=== PATIENT | female | born 1940 | race Caucasian/White ===

== ENCOUNTER 2022-05-12 08:46 | Inpatient (IN) ==
[2022-05-12] MEDS ORDERED: ONDANSETRON 4 MG/2 ML VIAL IV STA (09:11)
[2022-05-12] MEDS ORDERED: SODIUM CHLORIDE 0.9% 1,000 ML IV STA (09:11)
[2022-05-12] MEDS ORDERED: PANTOPRAZOLE 40 MG VIAL IV STA (09:11)
[2022-05-12 09:29] LABS: Basophils # 0.1 10*3/uL (0.0-0.2); Basophils % 0.8 % (0.0-0.8); Eosinophils % 0.5 % (0.00-10.9); Hematocrit 39.1 VOL% (35.7-47.0); Hemoglobin 13.2 GM/DL (12.0-16.0); Immature Granulocytes % 0.3 %; Immature Granulocytes Absolute 0.02 #; Lymphocytes # 1.4 10*3/uL (1.4-4.0); Lymphocytes % 23.3 % (21.3-54.2); Mean Corpuscular HGB Conc 33.8 GM/DL (32-36); Mean Corpuscular Volume 96.1 FL (87-102); Mean Platelet Volume 9.5 FL (9.6-12.0); Monocytes # 0.6 10*3/uL (0.11-0.8); Monocytes % 10.8 % (1.7-12.7); Neutrophils % 64.3 % (38.7-73.9); Platelet Count 301 T/CUMM (130-400); Red Blood Count 4.07 MC/CUMM (3.8-5.5); White Blood Count 5.9 T/CUMM (4-12)
[2022-05-12 09:39] LABS: PT Patient Result 10.7 SECS (10.1-12.1); Partial Thromboplastin Time 29.8 SECS (23.7-32.9)
[2022-05-12 09:51] LABS: Albumin 3.9 G/DL (3.4-5.0); Bilirubin,Total 0.4 MG/DL (0.20-1.00); Calcium 9.3 MG/DL (8.5-10.1); Osmolality,Calculated 268.1 MOS/KG (273-304); Potassium 3.9 MMOL/L (3.5-5.1)
[2022-05-12] MEDS ORDERED: ONDANSETRON 4 MG/2 ML VIAL IV PRN (11:06)
[2022-05-12] MEDS ORDERED: ACETAMINOPHEN 325 MG TABLET PO PRN (11:06)
[2022-05-12] MEDS: SODIUM CHLORIDE 0.9% 1,000 ML IV SCH ×2 (11:51→20:00)
[2022-05-12] MEDS ORDERED: fentaNYL 100 MCG/2 ML VIAL ONE (13:50)
[2022-05-12] MEDS ORDERED: VECURONIUM 10 MG VIAL IV ONE (13:50)
[2022-05-12] MEDS: CHOLECALCIFEROL 1,000 UNIT TABLET PO SCH (21:08)
[2022-05-12] MEDS: FLECAINIDE 50 MG TABLET PO SCH (21:08)
[2022-05-12] MEDS: DOCUSATE SODIUM 100 MG CAPSULE PO SCH (21:09)
[2022-05-13] MEDS ORDERED: hydrALAZINE 20 MG/1 ML VIAL IV PRN (01:25)
[2022-05-13] MEDS: SODIUM CHLORIDE 0.9% 1,000 ML IV SCH (03:19)
[2022-05-13] MEDS ORDERED: PROMETHAZINE 25 MG/1 ML VIAL IM ONE (07:30)
[2022-05-13] MEDS ORDERED: MEPERIDINE 50 MG/1 ML VIAL IM ONE (07:30)
[2022-05-13] MEDS ORDERED: MIDAZOLAM 2 MG/2 ML VIAL IV ONE (08:00)
[2022-05-13] MEDS ORDERED: LIDOCAINE 1% 20 ML VIAL MISC INJ ONE (08:00)
[2022-05-13] MEDS ORDERED: LIDOCAINE 2% 20 ML VIAL RESP TX ONE (08:00)
[2022-05-13] MEDS ORDERED: LIDOCAINE 2% VISCOUS 100 ML BOTTLE SWISH/SPIT ONE (08:00)
[2022-05-13] MEDS ORDERED: AZITHROMYCIN 250 MG TABLET PO SCH (09:00)
[2022-05-13] MEDS ORDERED: MULTIVITAMIN (CENTRUM) TABLET PO SCH (09:00)
[2022-05-13] MEDS ORDERED: CALCIUM (CARBONATE)/VITAMIN D 600 MG-400 UNIT TABLET PO SCH (09:00)
[2022-05-13] MEDS ORDERED: VALSARTAN 80 MG TABLET PO SCH (09:00)
[2022-05-13] MEDS ORDERED: PANTOPRAZOLE 40 MG TABLET PO SCH (09:00)
[2022-05-13] MEDS ORDERED: GLUCOSAMINE D3 BOSWELLIA SERR PO SCH (09:00)
[2022-05-13] MEDS ORDERED: ASCORBIC ACID 500 MG TABLET PO SCH (09:00)
[2022-05-13] MEDS ORDERED: ZINC GLUCONATE 50 MG TABLET PO SCH (09:00)
[2022-05-13] MEDS ORDERED: CETIRIZINE 10 MG TABLET PO SCH (09:00)
[2022-05-13] MEDS ORDERED: MAGNESIUM OXIDE 400 MG TABLET PO SCH (09:00)
[2022-05-13] MEDS ORDERED: [UNRECOGNIZED DRUG - OTHER] PO SCH (09:00)
[2022-05-13] MEDS ORDERED: LEVOFLOXACIN 500 MG TABLET PO SCH (11:00)
[2022-05-13] MEDS ORDERED: predniSONE 20 MG TABLET PO SCH (11:00)
[2022-05-13] MEDS: FLECAINIDE 50 MG TABLET PO SCH (11:45)
[2022-05-13] MEDS: CHOLECALCIFEROL 1,000 UNIT TABLET PO SCH (11:46)
[2022-05-13] MEDS: DOCUSATE SODIUM 100 MG CAPSULE PO SCH (11:47)
[2022-05-13 15:46] VITALS: BP 154/60
[2022-05-16 19:46] LABS: M. Tuberculosis PCR Result Negative (Negative)
== END 2022-05-13 18:05 | disposition home or self-care (01) | DRG 191 ==
LOC: N.ED 08:46 → N.EDINP 10:56 → N.5E 12:58
PROVIDERS: ADMIT Family Medicine; ATTEND Family Medicine